=== PATIENT | female | born 1980 | race Two or more races ===

== ENCOUNTER 2024-11-17 15:39 | Emergency (ER) | payer OTHER ==
[~2024-11-17] VITALS: Ht 167.6 cm; Wt 95.3 kg
[2024-11-17] MEDS ORDERED: TOPROL XL50 M1 (16:47)
[2024-11-17] MEDS ORDERED: ZESTRIL20 MG (16:47)
[2024-11-17] MEDS ORDERED: KETOROLAC TROMETHAMINE 60 MG VIAL IM ONE (17:15)
== END 2024-11-17 19:56 | disposition home or self-care (01) ==
LOC: ER 15:41
DX: M94.0 Chondrocostal junction syndrome [Tietze] (principal); I10 Essential (primary) hypertension

== ENCOUNTER 2025-09-01 11:33 | Emergency (ER) | payer OTHER ==
[~2025-09-01] VITALS: Ht 160 cm; Wt 112.0 kg
[~2025-09-01 11:33] MED LIST: TOPROL XL50 M1; ZESTRIL20 MG
[2025-09-01] MEDS ORDERED: KETOROLAC TROMETHAMINE 60 MG VIAL IM ONE ×2 (14:30→14:36)
[2025-09-01] MEDS ORDERED: DEXAMETHASONE SODIUM PHOSPHATE 4 MG/ML VIAL IM ONE (14:30)
[2025-09-01] MEDS ORDERED: DEXAMETHASONE SODIUM PHOSPHATE 4 MG/ML VIAL ONE (14:36)
[2025-09-01 14:52] LABS: BASO % 0.5 % (0.1-1.2); EOS # 0.05 (0.04-0.54); EOS % 1.2 % (0.7-7.0); LYMPH # 1.28 (1.18-3.74); LYMPH % 29.5 % (19.3-53.1); MEAN PLATELET VOLUME 10.20 fl (9.4-12.4); MONO # 0.36 (0.24-0.82); MONO % 8.3 % (4.7-12.5); NEUT # 2.62 (1.56-6.13); NEUT % 60.3 % (34.0-71.1); RED CELL DISTRIBUTION WIDTH 18.1 % (11.6-14.4)
[2025-09-01 15:23] LABS: ALT/SGPT 20.0 U/L (12-78); AST/SGOT 11.0 U/L (15-37); BILIRUBIN TOTAL 0.27 mg/dL (0.3-1.2); BUN CREA RATIO 17.0 (7.0-25.0); CREATININE SERUM 0.76 mg/dL (0.55-1.02); GFR 83.06; GLOBULINA 3.7 G/DL (2.4-3.5); GLUCOSE FASTING 120.0 mg/dL (65-100); OSMOLALITY SERUM 284.0 MOSM/KG (275-295)
[2025-09-01] MEDS ORDERED: EC-NAPROSYN500 MG PO (16:31)
== END 2025-09-01 17:14 | disposition home or self-care (01) ==
LOC: ER 11:34
DX: M79.10 Myalgia, unspecified site (principal); M94.0 Chondrocostal junction syndrome [Tietze]; I10 Essential (primary) hypertension